=== PATIENT | male | born 1935 | race Caucasian/White ===

== ENCOUNTER 2025-09-08 10:41 | Day surgery (SDC) | payer MEDICARE ==
[~2025-09-08] VITALS: Ht 165.1 cm; Wt 86.3 kg
[~2025-09-08 10:41] MED LIST: BACL1TAB9 PO; COLA50CA3 PO; ECOT81TA5 PO; FERR325T3 PO; LISI5TAB PO; LR 1,000 ML IV SCH; MECL12.575 PO; OXYC1TAB23 OR; PANT20TA6; RANI1TAB17 PO; SIMV20TA22; SIMV40TA2 PO; SULF500T4 PO; TAMS-18 PO; TAMS0.4C PO; TYLE325T5 PO; [UNRECOGNIZED DRUG - OTHER] PO; bisoprolol/HCTZ PO; tramadol PO
[2025-09-08] MEDS: FLURBIPROFEN 0.03% OPHTH SOLN 2.5 ML OS SCH (14:53)
[2025-09-08] MEDS: CYCLOPENTOLATE 1% OPHTH SOLN 2 ML BTL OS SCH (14:53)
[2025-09-08] MEDS: TETRACAINE 0.5% OPHTH SOLN 4ML OS SCH (14:53)
[2025-09-08] MEDS: PHENYLEPHRINE 2.5% OPHTH SOL 2ML OS SCH (14:53)
[2025-09-08] MEDS ORDERED: MIDAZOLAM 5 MG/ML 1 ML VIAL As Ordered ONE (15:36)
[2025-09-08] MEDS: LIDOCAINE 1% SDV 5 ML VIAL As Ordered ONE (15:39)
[2025-09-08] MEDS: CEFUROXIME 1 MG/0.1 ML INTRACAMERAL INJ As Ordered ONE (15:40)
[2025-09-08 15:59] VITALS: BP 116/60; TEMP 97; O2SAT 95
== END 2025-09-08 16:13 | disposition home or self-care (01) ==
LOC: M SDC 10:41
PROVIDERS: ATTEND Ophthalmology
DX: H25.12 Age-related nuclear cataract, left eye (principal); E78.00 Pure hypercholesterolemia, unspecified; N40.0 Benign prostatic hyperplasia without lower urinary tract symptoms; E66.9 Obesity, unspecified; K21.9 Gastro-esophageal reflux disease without esophagitis; Z79.899 Other long term (current) drug therapy; Z79.82 Long term (current) use of aspirin; Z87.19 Personal history of other diseases of the digestive system; Z68.31 Body mass index [BMI] 31.0-31.9, adult
CPT/HCPCS: 66984; J0697; J2250; J3010; V2632